=== PATIENT | male | born 1985 | race Caucasian/White ===

== ENCOUNTER 2021-02-17 21:33 | Emergency (ER) | payer OTHER ==
[2021-02-17 22:38] VITALS: RESP 18
--- NOTE | 2021-02-17 23:21 | ED ---
Male Urogenital HPI - General Chief complaint: Urogenital Stated complaint: Hematuria Time Seen by Provider: 02/17/21 22:54 Source: patient Mode of arrival: ambulatory Limitations: no limitations - Related Data Previous Rx's Medication Instructions Recorded Acetaminophen with Codeine 1 each PO Q4H #20 tab 07/24/14 [Tylenol w/codeine #3] Tobramycin 0.3% Ophth Soln [Tobrex 2 drop LEFT EYE Q4H #1 bottle 07/24/14 0.3% Ophth Soln] Allergies Allergy/AdvReac Type Severity Reaction Status Date / Time No Known Allergies Allergy Verified 02/17/21 22:33 Review of Systems ROS Statement: Those systems with pertinent positive or pertinent negative responses have been documented in the HPI. ROS Other: All systems not noted in ROS Statement are negative. Past Medical History Additional Past Medical History / Comment(s): sciatica History of Any Multi-Drug Resistant Organisms: None Reported Past Surgical History: No Surgical Hx Reported Additional Past Surgical History / Comment(s): SPLENECTOMY Past Psychological History: No Psychological Hx Reported Smoking Status: Current every day smoker Past Alcohol Use History: None Reported Past Drug Use History: Marijuana General Exam Limitations: no limitations Course Vital Signs 02/17/21 02/18/21 22:33 01:18 Temperature 99.2 F 98.8 F Pulse Rate 87 99 Respiratory 18 18 Rate Blood Pressure 134/91 140/85 O2 Sat by Pulse 97 100 Oximetry Medical Decision Making - Lab Data Result diagrams: 02/18/21 00:41 Lab Results 02/17/21 02/18/21 Range/Units 23:14 00:41 WBC 18.1 H (3.8-10.6) k/uL RBC 3.84 L (4.30-5.90) m/uL Hgb 12.6 L (13.0-17.5) gm/dL Hct 38.9 L (39.0-53.0) % MCV 101.3 H (80.0-100.0) fL MCH 32.9 (25.0-35.0) pg MCHC 32.5 (31.0-37.0) g/dL RDW 14.1 (11.5-15.5) % Plt Count 812 H (150-450) k/uL MPV 7.7 Neutrophils % 68 % Lymphocytes % 15 % Monocytes % 9 % Eosinophils % 5 % Basophils % 1 % Neutrophils # 12.3 H (1.3-7.7) k/uL Lymphocytes # 2.6 (1.0-4.8) k/uL Monocytes # 1.6 H (0-1.0) k/uL Eosinophils # 0.9 H (0-0.7) k/uL Basophils # 0.2 (0-0.2) k/uL Hypochromasia Slight Macrocytosis Slight Urine Color Dark Red Urine Appearance Turbid (Clear) Urine RBC >182 H (0-5) /hpf Urine WBC 109 H (0-5) /hpf Urine Bacteria Rare H (None) /hpf Urine Mucus Occasional H (None) /hpf Disposition Clinical Impression: Hematuria, UTI (urinary tract infection) Disposition: HOME SELF-CARE Condition: Good Instructions (If sedation given, give patient instructions): Hematuria (ED) Is patient prescribed a controlled substance at d/c from ED?: No Referrals: Jeferson Posey MD [Primary Care Provider] - 1-2 days
[2021-02-18 00:11] LABS: Bacteria,Urine Rare /hpf; Mucus,Urine Occasional /hpf
[2021-02-18 00:18] LABS: Appearance,Urine Turbid (Clear); Color,Urine Dark Red
[2021-02-18 00:19] LABS: RBC,Urine >182 /hpf (0-5); WBC,Urine 109 /hpf (0-5)
[2021-02-18] MEDS ORDERED: SODIUM CHLORIDE 0.9% 1,000 ML IV STA (00:32)
[2021-02-18 01:23] LABS: Basophils # (A) 0.2 k/uL (0-0.2); Basophils % (A) 1 %; Eosinophils # (A) 0.9 k/uL (0-0.7); Eosinophils % (A) 5 %; HCT 38.9 % (39.0-53.0); HGB 12.6 gm/dL (13.0-17.5); Hypochromasia Slight; Lymphocytes # (A) 2.6 k/uL (1.0-4.8); Lymphocytes % (A) 15 %; MCH 32.9 pg (25.0-35.0); MCHC 32.5 g/dL (31.0-37.0); MCV 101.3 fL (80.0-100.0); Macrocytosis Slight; Mean Platelet Volume 7.7; Monocytes # (A) 1.6 k/uL (0-1.0); Monocytes % (A) 9 %; Neutrophils # (A) 12.3 k/uL (1.3-7.7); Neutrophils % (A) 68 %; Platelet Count 812 k/uL (150-450); RBC 3.84 m/uL (4.30-5.90); RDW 14.1 % (11.5-15.5); WBC 18.1 k/uL (3.8-10.6)
--- NOTE | 2021-02-18 01:25 | CT ---
EXAMINATION TYPE: CT abdomen pelvis w con DATE OF EXAM: 02/18/2021 COMPARISON: None HISTORY: Abd pain CT DLP: 635.6 mGycm Automated exposure control for dose reduction was used. CONTRAST: Performed with IV Contrast, patient injected with 100 mL of Isovue 300. Images obtained from the diaphragm to the floor the pelvis with IV contrast. There is small right pleural effusion. There is infiltrate and atelectasis at the lung bases. Heart s ize is normal. There is no pericardial effusion. There is previous surgery at the gastric fundus. The re is no evidence of pancreatic mass. Spleen is absent. There is some irregular fluid in the region o f the splenic bed. There is no adrenal mass. Kidneys show satisfactory contrast opacification. There is no hydronephrosi s. Ureters are not dilated. Bladder distends smoothly. There is no inguinal hernia. Delayed images sh ow normal renal excretion. There is no retroperitoneal adenopathy. There is no free fluid in the pelvis. There is no mesenteric edema. There is no ascites or free air. There is no sign of a bowel obstruction. Lumbar vertebra have normal alignment. Posterior elements are intact. Bony pelvis is intact. The hip joints are intact. There is no hip dysplasia. There is tiny calcified granuloma in the liver. There a re multiple old posterior left side rib fractures. IMPRESSION: There is splenectomy. There is 5 x 3 cm low-density fluid collection at the splenectomy site consiste nt with a seroma or chronic hematoma. There is some mild atelectasis at the lung bases. There is smal l right pleural effusion. Multiple old left-sided rib fractures.
[2021-02-18 01:41] LABS: Partial Thromboplastin Time 30.5 sec (22.0-30.0); Prothrombin Time 10.8 sec (9.0-12.0)
[2021-02-18] MEDS ORDERED: CEPHALEXIN 500MG STARTER PACK 4 CAP BTL PO STA (01:56)
[2021-02-18] MEDS ORDERED: CEPHALEXIN 500 MG CAP PO STA (01:56)
[2021-02-18] MEDS ORDERED: cefTRIAXone IN SWFI 1,000 MG/10 ML SYRINGE IVP STA (01:56)
[2021-02-18 02:16] LABS: ALT 15 U/L (4-49); AST 22 U/L (17-59); African American GFR (CKD) >90 (>60 ml/min/1.73 sqM); Albumin 4.1 g/dL (3.5-5.0); Alkaline Phosphatase 158 U/L (38-126); Amylase 98 U/L (30-110); Anion Gap 9 mmol/L; Blood Urea Nitrogen 12 mg/dL (9-20); Calcium 9.8 mg/dL (8.4-10.2); Carbon Dioxide 29 mmol/L (22-30); Chloride 99 mmol/L (98-107); Glucose 90 mg/dL (74-99); Lipase 198 U/L (23-300); Non-African American GFR(CKD) >90 (>60 ml/min/1.73 sqM); Potassium 4.4 mmol/L (3.5-5.1); Sodium 137 mmol/L (137-145); Total Bilirubin <0.1 mg/dL (0.2-1.3); Total Protein 7.9 g/dL (6.3-8.2)
[2021-02-18 02:57] VITALS: BP 131/88; PULSE 94; TEMP 98.7
== END 2021-02-18 02:44 | disposition home or self-care (01) ==
LOC: EC 21:33
DX: N39.0 Urinary tract infection, site not specified (principal); F17.200 Nicotine dependence, unspecified, uncomplicated; F12.90 Cannabis use, unspecified, uncomplicated
CPT/HCPCS: 36415; 74177; 80053; 81001; 82150; 83690; 85025; 85610; 85730; 87086; 96361; 96374; 99284

== ENCOUNTER → 2021-02-21 | Outpatient (CLI) | payer OTHER ==
[2021-02-21 18:57] LABS: Basophils # (A) 0.22 X 10*3/uL (0.00-0.10); Basophils % (A) 1.6 %; Eosinophils # (A) 1.14 X 10*3/uL (0.04-0.35); Eosinophils % (A) 8.3 %; HCT 42.7 % (39.6-50.0); HGB 13.3 g/dL (13.0-17.0); Lymphocytes # (A) 3.05 X 10*3/uL (0.90-5.00); Lymphocytes % (A) 22.2 %; MCH 31.7 pg (27.0-32.0); MCHC 31.1 g/dL (32.0-37.0); MCV 101.9 fL (80.0-97.0); Macrocytosis (M) 2+; Mean Platelet Volume 9.6 fL (9.5-12.2); Monocytes # (A) 1.12 X 10*3/uL (0.20-1.00); Monocytes % (A) 8.1 %; Neutrophils # (A) 8.13 X 10*3/uL (1.80-7.70); Neutrophils % (A) 59.1 %; Platelet Count 819 X 10*3/uL (140-440); RBC 4.19 X 10*6/uL (4.40-5.60); RDW 13.8 % (11.5-14.5); WBC 13.76 X 10*3/uL (4.50-10.00)
[2021-02-21 20:55] LABS: African American GFR (CKD) 134.1 (60.0-200.0); Anion Gap 10.5 mmol/L (4.00-12.00); BUN/Creat Ratio 17.5 Ratio (12.00-20.00); Calcium 9.6 mg/dL (8.7-10.3); Carbon Dioxide 26.5 mmol/L (21.6-31.8); Non-African American GFR(CKD) 115.7 (60.0-200.0); Potassium 5.3 mmol/L (3.5-5.5)
== END | disposition home or self-care (01) ==
LOC: LABWHC1 13:24
PROVIDERS: ATTEND Internal Medicine
DX: R31.9 Hematuria, unspecified (principal)
CPT/HCPCS: 36415; 80048; 85025